=== PATIENT | male | born 1965 | race Caucasian/White ===

== ENCOUNTER 2017-11-14 09:41 | Emergency (ER) | payer BC ==
[2017-11-14 11:12] VITALS: BP 136/73
--- NOTE | 2017-11-14 11:37 | UC ---
Respiratory Complaint HPI - HPI Summary HPI Summary: 52 yo male with cough x 10 or more days no f/c no n/v no CP or SOB - History of Current Complaint Chief Complaint: UCRespiratory Stated Complaint: COUGH Time Seen by Provider: 11/14/17 11:29 Hx Obtained From: Patient Onset/Duration: Gradual Onset, Lasting Weeks Timing: Constant Severity Initially: Mild Severity Currently: Moderate Pain Intensity: 0 Pain Scale Used: 0-10 Numeric Character: Cough: Productive, Sputum Description: - green Aggravating Factors: Nothing, Other Associated Signs And Symptoms: Positive: Negative - Allergies/Home Medications Allergies/Adverse Reactions: Allergies Allergy/AdvReac Type Severity Reaction Status Date / Time No Known Allergies Allergy Verified 11/14/17 11:09 PMH/Surg Hx/FS Hx/Imm Hx Previously Healthy: Yes Respiratory History: Pneumonia - hospitalized x 2 - Surgical History Surgical History: Yes Surgery Procedure, Year, and Place: RIGHT KNEE MENISCUS REPAIR 1980. LASIK CORRECTIVE VISION - Family History Known Family History: Negative: Cardiac Disease, Hypertension, Diabetes, Respiratory Disease - Social History Alcohol Use: Daily Alcohol Amount: 3 wine Substance Use Type: None Smoking Status (MU): Never Smoked Tobacco Review of Systems Constitutional: Negative Skin: Negative Eyes: Negative ENT: Negative Respiratory: Cough Cardiovascular: Negative Gastrointestinal: Negative Genitourinary: Negative Motor: Negative Neurovascular: Negative Musculoskeletal: Negative Neurological: Negative Psychological: Negative Is Patient Immunocompromised?: No All Other Systems Reviewed And Are Negative: Yes Physical Exam Triage Information Reviewed: Yes Appearance: Well-Appearing, No Pain Distress, Well-Nourished Vital Signs: Initial Vital Signs Temp 97.9 F 11/14/17 11:09 Pulse 67 11/14/17 11:09 Resp 16 11/14/17 11:09 BP 136/73 11/14/17 11:09 Pulse Ox 100 11/14/17 11:09 Vital Signs Reviewed: Yes Eyes: Positive: Conjunctiva Clear ENT: Positive: Hearing grossly normal, TMs normal, Uvula midline. Negative: Nasal congestion, Nasal drainage, Tonsillar swelling, Tonsillar exudate, Dental tenderness, Sinus tenderness Neck: Positive: Supple, Nontender, No Lymphadenopathy Respiratory: Positive: Lungs clear, Normal breath sounds, No respiratory distress, No accessory muscle use Cardiovascular: Positive: RRR, No Murmur Neurological: Positive: Alert Psychological Exam: Normal Skin Exam: Normal UC Diagnostic Evaluation - Laboratory O2 Sat by Pulse Oximetry: 100 - normal/not hypoxic Respiratory Course/Dx - Differential Dx/Diagnosis Provider Diagnoses: acute bronchitis Discharge - Discharge Plan Condition: Stable Disposition: HOME Prescriptions: Amoxicillin PO (*) [Amoxicillin 875 MG (*)] 875 mg PO BID #14 tab Patient Education Materials: Acute Bronchitis (ED) Referrals: Azael Mirza MD [Primary Care Provider] - 1 Week (if not better) Additional Instructions: return fro new or worsening symptoms
== END 2017-11-14 11:40 | disposition home or self-care (01) ==
LOC: UCEAST 09:41
DX: J20.9 Acute bronchitis, unspecified (principal)
CPT/HCPCS: 99212; G0463

== ENCOUNTER 2018-11-29 18:16 | Emergency (ER) | payer BC ==
[2018-11-29 18:20] VITALS: BP 136/72
--- NOTE | 2018-11-29 19:31 | UC ---
Ear Complaint HPI - HPI Summary HPI Summary: 53 y/o male presents to the urgent care c/o nasal congestion, w/ yellowish nasal discharge, +PND and B/L ear pressure for the past week. Pt developed RT ear pain over night. Pain is 4/10 associated w/ decrease hearing. Pt has been taking OTC medication w/o any improvement. Pt denies fever. dizziness, SOB, chest pain, abdominal pain, N/v/D. - History of Current Complaint Chief Complaint: UCEar Stated Complaint: EAR PAIN Time Seen by Provider: 11/29/18 19:12 Hx Obtained From: Patient Onset/Duration: Gradual Onset, Lasting Weeks - 1 week, Worse Since - 1 day w/ Rt ear pain Severity Initially: Mild Severity Currently: Mild Pain Intensity: 2 Pain Scale Used: 0-10 Numeric Alleviating Factors: OTC Meds Associated Signs/Symptoms: Positive: URI Symptoms - Allergies/Home Medications Allergies/Adverse Reactions: Allergies Allergy/AdvReac Type Severity Reaction Status Date / Time No Known Allergies Allergy Verified 11/29/18 18:20 PMH/Surg Hx/FS Hx/Imm Hx Previously Healthy: Yes - Pt denies PMHX - Surgical History Surgical History: Yes Surgery Procedure, Year, and Place: RIGHT KNEE MENISCUS REPAIR 1980. LASIK CORRECTIVE VISION - Family History Known Family History: Positive: None - Pt denies PMHX Negative: Cardiac Disease, Hypertension, Diabetes, Respiratory Disease - Social History Occupation: Employed Full-time Lives: With Family Alcohol Use: Daily Alcohol Amount: 2/DAY Substance Use Type: None Smoking Status (MU): Never Smoked Tobacco Review of Systems All Other Systems Reviewed And Are Negative: Yes Constitutional: Positive: Negative Skin: Positive: Negative Eyes: Positive: Negative ENT: Positive: Ear Ache - RT ear pain, Nasal Discharge - yellowish, Sinus Congestion, Sinus Pain/Tenderness, Other - +PND Respiratory: Positive: Cough - dry cough Cardiovascular: Positive: Negative Gastrointestinal: Positive: Negative Genitourinary: Positive: Negative Motor: Positive: Negative Neurovascular: Positive: Negative Musculoskeletal: Positive: Negative Neurological: Positive: Headache Psychological: Positive: Negative Is Patient Immunocompromised?: No Physical Exam - Summary Physical Exam Summary: Vitals: reviewed General: Well developed, well-nourished male patient with NAD. Head and face: Normocephalic and atraumatic, Positive tenderness over the frontal and maxillary sinuses.. Eyes: PERRLA, EOMI x 2. Normal conjunctiva. No eye discharge. ENT: RT external ear canal clear. Rt TM injected w/ erythema and yellowish discharge, LF external ear canl clear and LF TM WNL. Nose: edematous and erythematous nasal mucosa with with yellowish discharge and erythematous mucosa. Pharynx with mild erythema, no exudate. PND yellowish Neck: Supple, no JVD, no carotid bruits and no lymphadenopathy. Lungs: clear, no rales, no rhonchi, no wheezes. CVS: RRR, S1 and S2 present no murmurs or gallops appreciated. Abdomen: soft nontender with positive bowel sounds. Extremities: no edema noted. Neuro: WNL. Skin: warm and dry Triage Information Reviewed: Yes Vital Signs: Initial Vital Signs Temp 97.1 F 11/29/18 18:17 Pulse 63 11/29/18 18:17 Resp 16 11/29/18 18:17 BP 136/72 11/29/18 18:17 Pulse Ox 100 11/29/18 18:17 Ear Complaint Course/Dx - Course Course Of Treatment: 53 y/o male presents to the urgent care c/o nasal congestion, w/ yellowish nasal discharge, +PND and B/L ear pressure for the past week. Pt developed RT ear pain over night. Pain is 4/10 associated w/ decrease hearing. Pt has been taking OTC medication w/o any improvement. Pt denies fever. dizziness, SOB, chest pain, abdominal pain, N/v/D. Hx obtained. Pt with 2 weeks of symptoms getting worse. Pt Rx Amoxicillin PO and flonase nasal spray. Advised to take Ibuprfe/Tylenol PO for pain. Discharge instructions explained to Pt. Advised to Return to the clinic or PCP if symptoms do not improve.Pt understood and agreed with plan of care. - Differential Dx/Diagnosis Differential Diagnosis/HQI/PQRI: Cerumen Impaction, Otitis Externa, Otitis Media , Perforated TM, URI, Other - sinusitis Provider Diagnosis: Right otitis media, Sinusitis Discharge - Sign-Out/Discharge Documenting (check all that apply): Patient Departure - d/C home All imaging exams completed and their final reports reviewed: No Studies - Discharge Plan Condition: Stable Disposition: HOME Prescriptions: Amoxicillin PO (*) [Amoxicillin 875 MG (*)] 875 mg PO BID #20 tab Fluticasone NASAL SPRAY 50MCG* [Flonase NASAL SPRAY 50MCG*] 2 spray BOTH NARES DAILY #1 btl Patient Education Materials: Ear Infection (ED), Sinusitis (ED) Referrals: Azael Mirza MD [Primary Care Provider] - 3 Days Additional Instructions: 1- Please increase fluid intake and rest. take full course of antibiotic to avoid resistance 2-Use Flonase as directed to help drain fluid. Also buy saline drops to clear sinuses 3-Take Ibuprofen PO q6-8hrs prn after meals to alleviate pain and swelling. 4-Return to the clinic or PCP if symptoms do not improve for further management and treatment - Billing Disposition and Condition Condition: STABLE Disposition: Home
== END 2018-11-29 19:56 | disposition home or self-care (01) ==
LOC: UCEAST 18:16
DX: J32.9 Chronic sinusitis, unspecified (principal); H66.91 Otitis media, unspecified, right ear
CPT/HCPCS: 99212; G0463

== ENCOUNTER 2018-12-21 07:59 | Emergency (ER) | payer BC ==
[2018-12-21 08:08] VITALS: BP 167/97
--- NOTE | 2018-12-21 09:33 | UC ---
Knee Pain HPI - HPI Summary HPI Summary: COLLIDED WITH ANOTHER PLAYER WHILE PLAYING HOCKEY LAST NIGHT AND FELL TO THE GROUND. WAS OKAY AFTER THAT BUT WHEN HE WENT TO STAND UP HE TWEAKED HIS RIGHT KNEE. TOOK IBUPROFEN AND WENT TO SLEEP. WHEN HE WOKE UP THIS MORNING HAD SIGNIFICANT PAIN WITH WEIGHTBEARING. HISTORY OF MENISCAL SURGERY TO THAT KNEE ABOUT 15 YEARS AGO. - History of Current Complaint Chief Complaint: UCLowerExtremity Stated Complaint: R KNEE INJURY Time Seen by Provider: 12/21/18 08:11 Hx Obtained From: Patient Onset/Duration: Sudden Onset, Lasting Hours, Still Present Severity Initially: Moderate Severity Currently: Moderate Pain Intensity: 8 Pain Scale Used: 0-10 Numeric Character: Sharp Aggravating Factor(s): Movement, Weight Bearing Alleviating Factor(s): Rest Associated Signs And Symptoms: Negative: Weakness Able to Bear Weight: Yes - Allergies/Home Medications Allergies/Adverse Reactions: Allergies Allergy/AdvReac Type Severity Reaction Status Date / Time No Known Allergies Allergy Verified 12/21/18 08:08 PMH/Surg Hx/FS Hx/Imm Hx Previously Healthy: Yes - Surgical History Surgical History: Yes Surgery Procedure, Year, and Place: RIGHT KNEE MENISCUS REPAIR 1980. LASIK CORRECTIVE VISION - Family History Known Family History: Positive: None - Pt denies PMHX Negative: Cardiac Disease, Hypertension, Diabetes, Respiratory Disease - Social History Alcohol Use: Daily Alcohol Amount: 2/DAY Substance Use Type: None Smoking Status (MU): Never Smoked Tobacco Review of Systems All Other Systems Reviewed And Are Negative: Yes Constitutional: Positive: Negative Skin: Positive: Negative Respiratory: Positive: Negative Cardiovascular: Positive: Negative Gastrointestinal: Positive: Negative Musculoskeletal: Positive: Arthralgia, Decreased ROM, Edema Physical Exam Triage Information Reviewed: Yes Appearance: Well-Appearing, No Pain Distress, Well-Nourished Vital Signs: Initial Vital Signs Temp 97.7 F 12/21/18 08:03 Pulse 62 12/21/18 08:03 Resp 16 12/21/18 08:03 BP 167/97 12/21/18 08:03 Pulse Ox 100 12/21/18 08:03 Vital Signs Reviewed: Yes Eyes: Positive: Conjunctiva Clear ENT: Positive: Hearing grossly normal Neck: Positive: Supple Respiratory: Positive: No respiratory distress, No accessory muscle use Cardiovascular: Positive: Pulses Normal Abdomen Description: Positive: Soft Musculoskeletal: Positive: ROM Limited @ - RIGHT KNEE EXTENSION, Edema @ - MINIMAL SWELLING RIGHT KNEE, Other: - RIGHT KNEE: NO JOINT LINE TENDERNESS OR TENDERNESS OVER ANY BONY PROMINENCES. MCL AND LCL INTACT TO STRESS TESTING. NEG DRAWERS SIGNS. EQUIVOCAL MCMURRAYS LATERALLY. NO TENDERNESS OVER PATELLAR LIGAMENT OR QUADRICEPS TENDON. DECREASED ROM (EXTENSION). Neurological: Positive: Alert Psychological: Positive: Age Appropriate Behavior Skin: Negative: Rashes Diagnostics - Radiology RIGHT KNEE XRAY Radiology Interpretation Completed By: Radiologist Summary of Radiographic Findings: NO FX OR DISLOCATION. SUGGESTION OF SMALL EFFUSION Knee Pain Course/Dx - Differential Dx/Diagnosis Provider Diagnosis: Right knee sprain Discharge - Sign-Out/Discharge Documenting (check all that apply): Patient Departure All imaging exams completed and their final reports reviewed: Yes - Discharge Plan Condition: Stable Disposition: HOME Patient Education Materials: Knee Sprain (ED) Referrals: Maine Cutler MD [Medical Doctor] - If Needed Azael Mirza MD [Primary Care Provider] - If Needed Additional Instructions: XRAY TODAY NEGATIVE FOR FRACTURE OR DISLOCATION BUT THERE IS A SUGGESTION OF A SMALL EFFUSION INDICATING SOME INFLAMMATION. YOUR SYMPTOMS SHOULD IMPROVE SIGNIFICANTLY OVER THE NEXT 1-2 WEEKS. IF YOU DO NOT IMPROVE EXPECTED FOLLOW- UP WITH YOUR PCP OR ORTHO. YOU MAY BENEFIT FROM REPEAT IMAGING AT THAT TIME. OTC IBUPROFEN OR ALEVE NEEDED FOR DISCOMFORT. REST, ICE, COMPRESS, ELEVATE. HAYLEY WRAP AND CRUTCHES NEEDED FOR SYMPTOM RELIEF. BE SURE TO GO THROUGH SLOW RANGE OF MOTION AND STRETCHING EXERCISES DAILY YOU ARE ABLE TO PREVENT STIFFENING UP AND MAKING THE DISCOMFORT WORSE. IBUPROFEN MAX DOSE: 600MG (3 TABS) EVERY 6 HRS OR 800MG (4 TABS) EVERY 8 HRS OR NAPROXEN MAX DOSE: 440MG (2 TABS) EVERY 12 HRS TYLENOL MAX DOSE: 1000MG (2 EXTRA STRENGTH TABS) EVERY 8 HRS OR 650MG (2 REGULAR TABS) EVERY 6 HRS - Billing Disposition and Condition Condition: STABLE Disposition: Home
== END 2018-12-21 09:30 | disposition home or self-care (01) ==
LOC: UCEAST 07:59
DX: S83.91XA Sprain of unspecified site of right knee, initial encounter (principal); W52.XXXA Crushed, pushed or stepped on by crowd or human stampede, initial encounter; Y93.22 Activity, ice hockey; Y92.9 Unspecified place or not applicable
CPT/HCPCS: 99213; G0463

== ENCOUNTER → 2019-02-14 07:20 | Day surgery (SDC) | payer BC ==
--- NOTE | 2019-02-06 15:44 | HP ---
HISTORY AND PHYSICAL: DATE OF ADMISSION/SURGERY: 02/14/19 DATE OF OFFICE VISIT: 02/06/19 SURGEON: Maine Cutler MD * (DICTATED BY DESTINI BRUNO) PROCEDURE: Right knee arthroscopy with partial meniscectomy, possible chondroplasty, possible synovectomy, and possible plica excision. CHIEF COMPLAINT: Right knee pain. HISTORY OF PRESENT ILLNESS: Mr. Corrigan is a 53-year-old gentleman with continued complaints of right knee pain and MRI confirms a meniscus tear. He has elected to proceed with surgery. PAST MEDICAL HISTORY: Denies. PAST SURGICAL HISTORY: Right knee arthroscopy and LASIK surgery. CURRENT MEDICATIONS: Meloxicam 50 mg daily. ALLERGIES: No known drug allergies. FAMILY HISTORY: Coronary artery disease. SOCIAL HISTORY: A 53-year-old gentleman, lives with spouse. Does not smoke or use drugs. He uses occasional alcohol. REVIEW OF SYSTEMS: A complete 14-point review of systems was reviewed with the patient. It was all negative or noncontributory. He denies history of DVT, PE , hepatitis, HIV, or anesthesia problems. PHYSICAL EXAMINATION GENERAL: He is well developed, well nourished, in no acute distress. VITAL SIGNS: He stands 5 feet 4 inches tall, weighs 255 pounds. Blood pressure 126/70, heart rate 60. HEENT: Normocephalic, atraumatic. NECK: Supple. No palpable lymph nodes. PULMONARY: The lungs are clear to auscultation bilaterally. CARDIO: Regular rate and rhythm. Strong S1, S2. ABDOMEN: Soft, nontender, nondistended. NEUROLOGICAL: He is alert and oriented x3. MUSCULOSKELETAL: Right lower extremity, the skin is intact. There are no open wounds or abrasions. There is a moderate joint effusion that continues over the medial joint line. Positive Kenny's. Positive Apley's. 2+ dorsalis pedis pulse. He is able to dorsiflex and plantarflex and has intact sensation. ASSESSMENT AND PLAN: Mr. Corrigan is a 53-year-old gentleman with complaints of right knee pain and MRI confirms a meniscus tear. He has elected to proceed with a right knee arthroscopy with partial meniscectomy, possible chondroplasty , possible synovectomy, and possible plica excision. The surgery is scheduled for 02/14/[address] Cutler discussed the risks and benefits of the surgery at today's visit and all of his questions were answered. He will follow up with Dr. Cutler 2 weeks after the surgery. DESTINI BRUNO [id number]/[facility] #: [id number] DOMO
[~2019-02-14 07:20] MED LIST: Acetaminophen TAB* 325 MG PO PRN; Buffered Lidocaine 1% SYRIN* 1 ML/SYRINGE INTRADERM ONE; Bupivacaine 0.5%* 50 ML VIAL ONE; Dexamethasone IV* 4 MG/ML 1 ML (4 MG) IV SLOW PU ONE; Dexamethasone IV* 4 MG/ML 1 ML (4 MG) ONE; DiMENhydriNATE IV* 50 MG/ML VIAL IV PUSH PRN; EPINEPHRINE 1 MG/ML 1 ML VIAL ONE; Famotidine IV* 10 MG/ML 2 ML (20 mg) ONE; Famotidine TAB* 20 MG ONE; Famotidine TAB* 20 MG PO ONE; HYDROcodone/ACETAMIN 5-325 MG* 1 TAB PO PRN; Ketorolac INJ* 30 MG/ML 1 ML VIAL IV PRN; Lactated Ringers 1000 ML Bag* 1,000 ML IV SCH; Lidocaine 2% PF * 5 ML VIAL ONE; Midazolam* 1 MG/ML 2 ML VIAL (2 MG) ONE; Naloxone* 0.4 MG/ML 1 ML VIAL IV PRN; Ondansetron INJ* 2 MG/ML VIAL ONE; PROCHLORPERAZINE INJ 5 MG/ML 2 ML VIAL IV PRN; Propofol* 10 MG/ML 20 ML BTL ONE; Succinylcholine* 20 MG/ML 10 ML VIAL ONE; ceFAZolin 2 GM in NS PREMIX(*) 2 GM/100 ML BAG IVPB ONE; fentaNYL* 50 MCG/ML 2 ML VIAL (100 MCG VIAL) IV PRN; fentaNYL* 50 MCG/ML 2 ML VIAL (100 MCG VIAL) ONE; methylPREDNISolone ACETATE 80* 80 MG/ML 1 ML VIAL ONE
[2019-02-14 11:12] VITALS: BP 125/90
--- NOTE | 2019-02-15 02:11 | OP ---
DATE OF OPERATION: 02/14/19 - [facility] DATE OF : 65 SURGEON: Maine Cutler MD BOOM OPERATOR: DESTINI Ramirez. Ms. Lin did help throughout the procedure with preparation of the leg, wound retraction, manipulation of the knee and wound closure. ANESTHESIOLOGIST: Dr. Napier. ANESTHESIA: General. PRE-OP DIAGNOSES: Right knee medial and lateral meniscal tear, mild-to- moderate osteoarthritis. POST-OP DIAGNOSES: Right knee medial and lateral meniscal tear, mild-to- moderate osteoarthritis. OPERATIVE PROCEDURE: Right knee arthroscopy with partial medial meniscectomy and partial lateral meniscectomy, anterior synovectomy. COMPLICATIONS: None. SPECIMEN: None. ESTIMATED BLOOD LOSS: Less than 25 cc. BRIEF HISTORY/INDICATION: Mr. Corrigan is a 53-year-old gentleman with several months of increased pain after a hockey injury. He had continued pain and swelling on the right knee with mechanical symptoms. MRI confirmed a medial meniscal tear as well as a displaced bucket handle tear of the lateral meniscus. Due to continued pain and failure of conservative treatment, I did recommend he have right knee arthroscopy with partial meniscectomies. The patient agreed to do this. Informed consent was obtained from them. He understood the risks of surgery included but were not limited to bleeding, infection, damage to nearby structures, continued pain, need for further surgery , intraoperative complications, re-tear of the meniscus, progression of arthritis, anesthesia complications, stroke, heart attack, blood clot and . He wished to proceed. INTRAOPERATIVE FINDINGS: Intraoperatively, the patient was noted to have grade 2 and 3 Outerbridge cartilage changes in the medial and patellofemoral compartments. He had a large chronic-appearing displaced bucket handle tear of the lateral meniscus involving the white-red and red-red zone. There was no visible vascularity along the meniscal edge. This bucket handle tear was displaced into the joint sleeve through the ACL. The medial meniscus had a long linear-type tear involving the majority of the body in the white-red zone. DESCRIPTION OF PROCEDURE: Mr. Corrigan was identified in the preanesthesia unit. His right lower extremity was marked as the correct operative site. Informed consent was signed and placed in the chart. The patient was taken to the operating room and placed under anesthesia without difficulty. Right lower extremity was prepped and draped in the usual sterile fashion. Preop time-out was made to correctly identify the patient, side, and site. Appropriate perioperative antibiotics were given within 1 hour of incision. A standard 0.5 cm anterolateral portal incision was made with a 15 blade and carried down through the capsule. Trocar was introduced. As soon as the light and water sources were turned on, there was immediate visualization of the suprapatellar pouch. A tour of the knee joint was performed. Suprapatellar pouch showed no obvious abnormalities. Patellofemoral joint showed some grade 2 and 3 Outerbridge cartilage changes. Medial gutter showed no loose body or plica. Medial compartment showed some grade 2 and 3 Outerbridge cartilage changes along the medial femoral condyle. Medial meniscus had a long linear tear of the majority of the body involving the white-red zone. ACL and PCL appeared to be intact. There was a large amount of the anterior synovitis noted. The knee was placed in a [id number] position. The displaced bucket handle tear was immediately visualized. Minimal degenerative changes were seen. Lateral gutter showed no loose body or plica. A medial portal incision was made under direct visualization. Shaver and radiofrequency ablation wand were used to perform anterior synovectomy. Visualization was much improved. A straight biter and shaver were used to perform partial medial meniscectomy. Smooth border of the meniscus was obtained in the red- white zone. Further probing of the meniscus showed no additional tears or displaced fragments. Radiofrequency ablation wand was used to further smooth the edge of the meniscus. Next, the knee was placed in the [id number] position. A straight biter and shaver were used to perform partial lateral meniscectomy. The displaced meniscal fragment was carefully excised. Further probing of the lateral meniscus showed no additional tears or displaced fragments. This was mainly the white-red zone and red-red zone. There was no visualized vascularity along the edge of the meniscus. The knee was copiously irrigated with sterile saline. Instruments were removed. The incisions were closed using 3-0 nylon suture. Intraarticular injection of 80 mg Depo-Medrol and 6 cc of 0.25% ropivacaine were placed in the knee joint. The patient tolerated the procedure well and had no complications. He was taken to the PACU in a stable condition. Intended weightbearing will be weightbearing as tolerated. Intended DVT prophylaxis will be aspirin. [id number]/[facility] #: [id number] DOMO
== END | disposition home or self-care (01) ==
LOC: OR 07:20
PROVIDERS: ATTEND Orthopaedic Surgery Adult Reconstructive Orthopaedic Surgery
DX: S83.241A Other tear of medial meniscus, current injury, right knee, initial encounter (principal); S83.281A Other tear of lateral meniscus, current injury, right knee, initial encounter; X50.0XXA Overexertion from strenuous movement or load, initial encounter; Y93.22 Activity, ice hockey; Y92.330 Ice skating rink (indoor) (outdoor) as the place of occurrence of the external cause
CPT/HCPCS: A9270-GY; J0330; J0690; J1040; J1100; J2250; J2405; J2704; J3010